=== PATIENT | male | born 1970 | race American Indian/Alaskan Native ===

== ENCOUNTER 2019-07-19 00:27 | Emergency (ER) | payer MEDICAID ==
--- NOTE | 2019-07-19 01:12 | Emergency Department Report ---
HPI <MARYRAY - Last Filed: 07/19/19 15:50> - HPI HPI: 48-year-old -[place] male presents to the emergency department via EMS from what appears to be a [place] [facility] for a mental health evaluation. Patient says he does not know why he was sent in. He denies any past medical or psychiatric history. The information, obtained by EMS through triage, is that the patient allegedly has been having some hallucinations. The patient denies any suicidal or homicidal ideations, or any auditory or visual hallucinations. He is awake, alert, oriented to person place and time. The patient does not know the name of his [place] [facility], the address, the phone number. He denies there being any type of inciting event prior to presentation that led to an ambulance being called. <KIT RIVAS Nimco - Last Filed: 07/19/19 22:08> - General Chief Complaint: Psych Time Seen by Provider: 07/19/19 01:05 ED Past Medical Hx <MARYRAY - Last Filed: 07/19/19 15:50> - Past Medical History Previous Medical History?: Yes Hx Hypertension: No Additional medical history: Stage 3 Syphilis - Surgical History Past Surgical History?: Yes Additional Surgical History: hernia repair - Social History Smoking Status: Never Smoker Substance Use Type: None <KIT RIVAS Nimco - Last Filed: 07/19/19 22:08> - Medications Home Medications: Home Medications Medication Instructions Recorded Confirmed Last Taken Type No Known Home Medications [No 03/07/13 03/07/13 Unknown History Reported Home Medications] ED Review of Systems ROS: Stated complaint: PSYCH EVAL Other details as noted in HPI <HERNANDEZRAY - Last Filed: 07/19/19 15:50> ROS: Stated complaint: PSYCH EVAL Other details as noted in HPI Comment: All other systems reviewed and negative Constitutional: denies: chills, fever Respiratory: denies: cough, shortness of breath Cardiovascular: denies: chest pain, palpitations Gastrointestinal: denies: abdominal pain, vomiting Neurological: denies: headache, weakness Psychiatric: denies: depression, auditory hallucinations, visual hallucinations, homicidal thoughts, suicidal thoughts <KIT RIVAS Nimco - Last Filed: 07/19/19 22:08> Physical Exam - Physical Exam Vital Signs: Vital Signs 07/19/19 07/19/19 07/19/19 00:41 02:41 09:24 Temperature 98.3 F Pulse Rate 90 Respiratory 20 20 20 Rate Blood Pressure 93/58 Blood Pressure [Right] O2 Sat by Pulse 98 98 98 Oximetry 07/19/19 07/19/19 09:46 13:54 Temperature 98.3 F 97.9 F Pulse Rate 89 62 Respiratory 20 20 Rate Blood Pressure Blood Pressure 116/67 103/67 [Right] O2 Sat by Pulse 98 96 Oximetry <RAY HERNANDEZ - Last Filed: 07/19/19 15:50> - Physical Exam Vital Signs: Vital Signs 07/19/19 00:41 Temperature 98.3 F Pulse Rate 90 Respiratory 20 Rate Blood Pressure 93/58 O2 Sat by Pulse 98 Oximetry Physical Exam: GENERAL: The patient is well-developed well-nourished. HENT: Normocephalic. Atraumatic. Patient has moist mucous membranes. EYES: Extraocular motions are intact. NECK: Supple. Trachea is midline. CHEST/LUNGS: Clear to auscultation. There is no respiratory distress noted. HEART/CARDIOVASCULAR: Regular. There is no tachycardia. ABDOMEN: Abdomen is soft, nontender. Patient has normal bowel sounds. SKIN: Skin is warm and dry. NEURO: The patient is awake, alert, and oriented. The patient is cooperative. The patient has no focal neurologic deficits. Normal speech. MUSCULOSKELETAL: There is no tenderness or deformity. There is no evidence of acute injury. <KIT RIVAS - Last Filed: 07/19/19 22:08> ED Course Vital Signs 07/19/19 07/19/19 07/19/19 00:41 02:41 09:24 Temperature 98.3 F Pulse Rate 90 Respiratory 20 20 20 Rate Blood Pressure 93/58 Blood Pressure [Right] O2 Sat by Pulse 98 98 98 Oximetry 07/19/19 07/19/19 09:46 13:54 Temperature 98.3 F 97.9 F Pulse Rate 89 62 Respiratory 20 20 Rate Blood Pressure Blood Pressure 116/67 103/67 [Right] O2 Sat by Pulse 98 96 Oximetry - Reevaluation(s) Reevaluation #1: 07/19/19 15:50 But nursing staff was able to discover that the patient was diagnosed with neurosyphilis approximately 2 weeks ago. Patient was in the hospital for 7 days. Caregiver states that he was given "a bunch of penicillin". Our assumption is that he received a IM dose of high-dose Bicillin at the time of discovery and 7 days later. Patient will be due for third dose. Patient be given an additional 2,400,000 units of Bicillin. Patient will have psychiatry follow-up as an outpatient. Patient is stable for discharge at this time. <RAY HERNANDEZ - Last Filed: 07/19/19 15:50> Vital Signs 07/19/19 00:41 Temperature 98.3 F Pulse Rate 90 Respiratory 20 Rate Blood Pressure 93/58 O2 Sat by Pulse 98 Oximetry <KIT RIVAS - Last Filed: 07/19/19 22:08> ED Medical Decision Making - Lab Data Result diagrams: 07/19/19 01:09 07/19/19 01:09 <RAY HERNANDEZ - Last Filed: 07/19/19 15:50> - Lab Data Result diagrams: 07/19/19 01:09 07/19/19 01:09 - Medical Decision Making This patient presents to the emergency department for what appears to be a mental health evaluation. However at the time of my examination the patient denies any suicidal or homicidal ideations or any hallucinations. I do not know what occurred prior to presentation or if there was any type of behavioral disturbance that led to EMS being called for this patient. So far the patient has been calm, oriented, and appropriate. However the patient does not know the address where he stays, the phone number, and it sounds like a [place] [facility]. He will remain in the emergency department this evening and will be seen by the psychiatric assigner and case management in the morning. His labs have been unremarkable. Vital signs stable throughout his ED course. He does not appear to be someone who needs a 1013 or require involuntary inpatient psychiatric admission. However, if he is seen by the psychiatric assessment team and they deemed that he does require a 1013, I would consider this patient medically cleared. <KIT RIVAS - Last Filed: 07/19/19 22:08> Critical care attestation.: If time is entered above; I have spent that time in minutes in the direct care of this critically ill patient, excluding procedure time. <RAY HERNANDEZ - Last Filed: 07/19/19 15:50> Critical care attestation.: If time is entered above; I have spent that time in minutes in the direct care of this critically ill patient, excluding procedure time. <KIT RIVAS - Last Filed: 07/19/19 22:08> ED Disposition Is pt being admited?: No Does the pt Need Aspirin: No <RAY HERNANDEZ - Last Filed: 07/19/19 15:50> Is pt being admited?: No Time of Disposition: 02:10 <KIT RIVAS - Last Filed: 07/19/19 22:08> Clinical Impression: Medical clearance for psychiatric admission, Neurosyphilis in adult Disposition: DC-01 TO HOME OR SELFCARE Condition: Stable Referrals: PRIMARY CARE,MD [Primary Care Provider] - 3-5 Days
[2019-07-19 01:30] LABS: Bilirubin,Urine NEG (Negative); Blood,Urine NEG (Negative); Color,Urine Yellow (Yellow); Protein,Urine <15 mg/dL mg/dL (Negative)
[2019-07-19 01:31] LABS: Mucus,Urine FEW /HPF
[2019-07-19 01:36] LABS: Amphetamine Screen,Urine PRESUMPTIVE NEGATIVE; Benzodiazepines Screen,Urine PRESUMPTIVE NEGATIVE; Cannabinoid Screen,Urine PRESUMPTIVE NEGATIVE; Cocaine Screen,Urine PRESUMPTIVE NEGATIVE; Methadone Screen,Urine PRESUMPTIVE NEGATIVE; Opiate Screen,Urine PRESUMPTIVE NEGATIVE
[2019-07-19 01:37] LABS: Basophils # (Auto) 0.1 K/mm3 (0.0-0.1); Basophils % (Auto) 1.3 % (0.0-1.8); Eosinophils # (Auto) 0.1 K/mm3 (0.0-0.4); Eosinophils % (Auto) 1.2 % (0.0-4.3); Hematocrit 35.3 % (35.5-45.6); Hemoglobin 12.5 gm/dl (11.8-15.2); Lymphocytes # (Auto) 1.9 K/mm3 (1.2-5.4); Lymphocytes % (Auto) 20.7 % (13.4-35.0); Mean Corpuscular HGB Conc 35 % (32-34); Mean Corpuscular Volume 101 fl (84-94); Monocytes # (Auto) 0.8 K/mm3 (0.0-0.8); Platelet Count 306 K/mm3 (140-440); Red Blood Count 3.49 M/mm3 (3.65-5.03)
[2019-07-19 01:55] LABS: BUN/Creatinine Ratio 11; Blood Urea Nitrogen 10 mg/dL (9-20); Calcium 9.1 mg/dL (8.4-10.2); Hemolysis Index 2
[2019-07-19 13:55] VITALS: BP 103/67
[2019-07-19] MEDS ORDERED: PENICILLIN G BENZATHINE 1.2 MILLION UNIT/2 ML INJ IM ONE (15:49)
== END 2019-07-19 18:14 | disposition home or self-care (01) ==
LOC: ED 00:27
DX: R44.0 Auditory hallucinations (principal); A52.3 Neurosyphilis, unspecified; I10 Essential (primary) hypertension
CPT/HCPCS: 36415; 80048; 80307; 81001; 85025; 96372; 99284; J0561; 80320; G0480